=== PATIENT | female | born 1970 | race Caucasian/White ===

== ENCOUNTER 2017-08-28 03:02 | Emergency (ER) | payer MEDICAID ==
--- NOTE | 2017-08-28 03:12 | CPEKG ---
Heart Rate: 86 RR Interval: 698 P-R Interval: 196 QRSD Interval: 102 QT Interval: 404 QTC Interval: 484 P Hitchins: 59 QRS Hitchins: -27 T Wave Hitchins: 55 EKG Severity - OTHERWISE NORMAL ECG - EKG Impression: SINUS RHYTHM EKG Impression: ATRIAL PREMATURE COMPLEX EKG Impression: BORDERLINE LEFT AXIS DEVIATION Electronically Signed By: Giulia Lipscomb 28-Aug-2017 07:36:47
[2017-08-28 03:25] LABS: PLATELET COUNT 357 10^3/uL (150-400)
--- NOTE | 2017-08-28 04:17 | EDPHY ---
H & P Stated Complaint: [id number] Source: Patient, EMS Exam Limitations: No limitations - Personal History LMP (Females 10-55): Unknown Current Tetanus Diphtheria and Acellular Pertussis (TDAP): Unsure - Medical/Surgical History Hx Asthma: No Hx Chronic Respiratory Disease: Yes Hx Diabetes: No Hx Cardiac Disease: No Hx Renal Disease: No Hx Cirrhosis: No Hx Alcoholism: No Hx HIV/AIDS: No Hx Splenectomy or Spleen Trauma: No Other PMH: hyperlipidemia, schizophrenia, bipolar - Social History Smoking Status: Current every day smoker Time Seen by Provider: 08/28/17 04:14 HPI/ROS: HPI The patient presents brought in by ambulance from outside of a [employer] shop for suicidal ideation. The patient says she has been depressed for years and has intermittently felt suicidal, however over the last few days her suicidality has become worse. She thinks this is because she is in the middle of a divorce. She does not have a plan to hurt herself. She says she is taking BuSpar and Risperdal for her schizophrenia and bipolar disorder. She is homeless and sleeps on the streets. She usually stays in [place]. She has been admitted to mental health hospitals in the past. She also complains of chest pain which has been present for the last 3 years which she describes as chronic with a squeezing sensation in her chest associated with shortness of breath. REVIEW OF SYSTEMS Constitutional: No fever, no chills. Eyes: No discharge. ENT: No sore throat. Cardiovascular: Positive for chest pain, no palpitations. Respiratory: No cough, no shortness of breath. Gastrointestinal: No abdominal pain, no vomiting. Genitourinary: No hematuria. Musculoskeletal: No back pain. Skin: No rashes. Neurological: No headache. PMHx: Reported schizophrenia and bipolar disorder Soc Hx: Homeless, denies drug and alcohol use PHYSICAL General Appearance: Alert, no distress Eyes: Pupils equal and round no pallor or injection ENT, Mouth: Mucous membranes moist Respiratory: There are no retractions, lungs are clear to auscultation Cardiovascular: Regular rate and rhythm Gastrointestinal: Abdomen is soft and non-tender, no masses, bowel sounds normal Neurological: A&O, moves all extremities Skin: Warm and dry, no rashes Musculoskeletal: Neck is supple non tender Extremities: symmetrical, full range of motion Psychiatric: Patient is oriented X 3, there is no agitation (Giulia Lipscomb) Constitutional: Initial Vital Signs Temperature (C) 36.6 C 08/28/17 03:05 Heart Rate 74 08/28/17 03:05 Respiratory Rate 18 08/28/17 03:05 Blood Pressure 155/74 H 08/28/17 03:05 O2 Sat (%) 95 08/28/17 03:05 O2 Delivery Mode Room Air Allergies/Adverse Reactions: No Known Allergies Allergy (Unverified 08/28/17 03:19) Home Medications: Medication Instructions Recorded Risperdal 08/28/17 busPIRone 08/28/17 Medical Decision Making - Diagnostics EKG Interpretation: EKG: Complete interpretation has been separately recorded in the [facility] archive. Summary impression: Normal sinus rhythm (Giulia Lipscomb) ED Course/Re-evaluation: 0700AM: Patient signed over to Dr. Bailey at 7am shift-change. (Grabiel Nelson ) Differential Diagnosis: 47-year-old female with homelessness, reported schizophrenia and bipolar disorder, chronic chest pain for the last 3 years, presents brought in by ambulance from outside of a [employer] shop on a mental health hold for suicidal ideation. The patient has had intermittent suicidal thoughts which have become worse over the last several days, she believe she is feeling more stressed because of a divorce she is going through. On exam, she has normal vital signs and has an unremarkable physical exam. Her chest pain seems to be quite chronic for the last 3 years and is no worse today. I do not feel this requires any Emergency Department evaluation. We will check basic labs so that she can be evaluated by the mental health team for suicidal ideation. (Giulia Lipscomb) Other Provider: I assumed care of the patient at 0700 pending psychiatric disposition. (Ben Miranda) Care the patient is assumed at 1:30 p.m. With plan for psychiatric admission at [facility]. Signed out to Dr. Nelson at 10:08 p.m., placement pending (Mayank Sevilla) I assumed care of this patient from Dr. Nelson at 7:00 a.m.. She has undergone mental health evaluation. Placement at a crisis stabilization unit has been obtained. I have signed the EMTALA form. Transfer is being arranged. (Cabeen,Mariama A) - Data Points Laboratory Results: Laboratory Results 08/28/17 03:18 08/28/17 03:18 Medications Given: Discontinued Medications Acetaminophen (Tylenol) 650 mg PO EDNOW ONE Stop: 08/28/17 12:12 Last Admin: 08/28/17 12:49 Dose: 650 mg Acetaminophen (Tylenol) 650 mg PO EDNOW ONE Stop: 08/28/17 20:17 Last Admin: 08/28/17 20:19 Dose: 650 mg Buspirone HCl (Buspar) 15 mg PO EDNOW ONE Stop: 08/29/17 09:23 Last Admin: 08/29/17 10:45 Dose: 15 mg Guaifenesin/Codeine Phosphate (Robitussin Ac) 10 ml PO EDNOW ONE Stop: 08/28/17 22:09 Last Admin: 08/28/17 22:54 Dose: 10 ml Lorazepam (Ativan) 1 mg PO ONCE ONE Stop: 08/29/17 02:35 Last Admin: 08/29/17 03:09 Dose: 1 mg Oxcarbazepine (Trileptal) 600 mg PO EDNOW ONE Stop: 08/28/17 11:58 Last Admin: 08/28/17 12:49 Dose: 600 mg Oxcarbazepine (Trileptal) 300 mg PO EDNOW ONE Stop: 08/29/17 09:25 Last Admin: 08/29/17 10:07 Dose: Not Given Oxcarbazepine (Trileptal) 600 mg PO EDNOW ONE Stop: 08/29/17 10:07 Last Admin: 08/29/17 10:45 Dose: 600 mg Oxybutynin Chloride (Ditropan) 15 mg PO EDNOW ONE Stop: 08/29/17 09:24 Last Admin: 08/29/17 10:45 Dose: 15 mg Throat Lozenges (Cepacol Lozenge) 1 ea PO EDNOW ONE Stop: 08/29/17 02:03 Last Admin: 08/29/17 02:28 Dose: 1 ea Throat Lozenges (Cepacol Lozenge) 1 ea PO EDNOW ONE Stop: 08/29/17 12:56 Last Admin: 08/29/17 12:58 Dose: 1 ea Departure - Departure Disposition: Other Psych, Not [place] Clinical Impression: Suicidal ideation Chest pain Qualifiers: Chest pain type: other chest pain Qualified Code(s): R07.89 - Other chest pain ; R07.8 - Other chest pain Condition: Good Instructions: Bipolar Disorder (ED) Referrals: [facility],. [Clinic] - As per Instructions
[2017-08-28] MEDS ORDERED: OXcarbazepine 300 MG TAB PO ONE (11:57)
[2017-08-28] MEDS ORDERED: ACETAMINOPHEN 325 MG TAB PO ONE ×2 (12:11→20:16)
[2017-08-28] MEDS ORDERED: guaiFENesin/CODEINE PHOS 10 ML UDCUP PO ONE (22:08)
[2017-08-28 22:41] VITALS: RESP 16
[2017-08-29] MEDS ORDERED: CEPACOL LOZENGE PO ONE ×2 (02:02→12:55)
[2017-08-29] MEDS ORDERED: LORazepam 1 MG TAB PO ONE (02:34)
[2017-08-29] MEDS ORDERED: LORazepam 1 MG TAB ONE (03:07)
[2017-08-29] MEDS ORDERED: busPIRone 15 MG TAB PO ONE (09:22)
[2017-08-29] MEDS ORDERED: OXYBUTYNIN CHLORIDE 5 MG TAB PO ONE (09:23)
[2017-08-29] MEDS ORDERED: OXcarbazepine 300 MG TAB PO ONE ×2 (09:24→10:06)
[2017-08-29 14:19] VITALS: BP 127/63; PULSE 74; TEMP 98.2; O2SAT 94
== END 2017-08-29 14:20 ==
LOC: EDUNIT# → EEVIPCON 03:02
DX: R45.851 Suicidal ideations (principal); R07.89 Other chest pain; F17.200 Nicotine dependence, unspecified, uncomplicated
CPT/HCPCS: 80305; G0480